=== PATIENT | female | born 1955 | race Caucasian/White ===

== ENCOUNTER 2018-09-24 09:55 | Day surgery (SDC) | payer BC ==
[2018-09-24] MEDS ORDERED: LIDOCAINE 2% (SDV) 5 ML INJ (11:11)
[2018-09-24] MEDS ORDERED: PROPOFOL 40 ML (11:11)
[2018-09-24] MEDS ORDERED: FENTAnyl 50 MCG/ML VIAL (11:11)
== END 2018-09-24 13:41 | disposition home or self-care (01) ==
LOC: GIL 09:55
DX: Z12.11 Encounter for screening for malignant neoplasm of colon (principal); K29.50 Unspecified chronic gastritis without bleeding; K64.8 Other hemorrhoids; K21.9 Gastro-esophageal reflux disease without esophagitis; E11.9 Type 2 diabetes mellitus without complications; I10 Essential (primary) hypertension
CPT/HCPCS: 43239; 82962; 88305; 88312